=== PATIENT | male | born 1955 | race African-American/Black ===

== ENCOUNTER 2020-02-06 16:28 | Outpatient (CLI) | payer OTHER ==
--- NOTE | 2020-02-06 16:46 | RAD ---
XR Lumbar Spine 2 Or 3 View HISTORY: Disability exam. Low back pain COMPARISON: None. FINDINGS: There are degenerative changes in the lower lumbar spine. There is minimal anterolisthesis of L4 ove r L5. No compression fracture or bony destruction is seen.
== END 2020-02-06 16:29 | disposition home or self-care (01) ==
LOC: BICRAD 16:28
PROVIDERS: ATTEND Internal Medicine
DX: Z02.71 Encounter for disability determination (principal)
CPT/HCPCS: 72100